=== PATIENT | female | born 1935 | race Caucasian/White ===

== ENCOUNTER 2016-09-08 21:33 | Inpatient (IN) ==
[2016-09-08] MEDS ORDERED: TYLENOL PO PRN (23:30)
[2016-09-08] MEDS ORDERED: HYDROXYZINE PO PRN (23:36)
[2016-09-08] MEDS ORDERED: NARCAN IV PRN (23:36)
[2016-09-08] MEDS ORDERED: BENADRYL IV PRN (23:36)
[2016-09-08] MEDS ORDERED: PHENERGAN IV ONE (23:42)
[2016-09-08] MEDS ORDERED: SODIUM CHLORIDE 0.9% INJ ONE (23:42)
[2016-09-08] MEDS ORDERED: DILAUDID IV ONE (23:42)
[2016-09-08] MEDS: OFIRMEV 1000 MG/ISOTONIC SOLN 1,000 MG/100 ML BOTTLE IV SCH (23:45)
[2016-09-09] MEDS: OFIRMEV 1000 MG/ISOTONIC SOLN 1,000 MG/100 ML BOTTLE IV SCH (06:14)
[2016-09-09] MEDS ORDERED: LR 1,000 ML IV SCH ×2 (06:27→07:19)
[2016-09-09] MEDS: DILAUDID PCA VIAL IV PRN (06:42)
[2016-09-09] MEDS: COZAAR PO SCH (10:18)
[2016-09-09] MEDS: DITROPAN XL PO SCH (10:19)
[2016-09-09] MEDS: CYMBALTA PO SCH (10:19)
[2016-09-09] MEDS: EVOXAC PO SCH ×3 (10:20→19:03)
[2016-09-09] MEDS: NORCO-10 PO SCH ×3 (10:20→21:12)
[2016-09-09] MEDS: VITAMIN D PO SCH (10:21)
[2016-09-09] MEDS: PRILOSEC PO SCH (10:21)
[2016-09-09] MEDS: TOPROL XL PO SCH (10:21)
[2016-09-09] MEDS: PREDNISONE PO SCH (10:21)
[2016-09-09] MEDS: TOPAMAX PO SCH (10:21)
--- NOTE | 2016-09-09 10:23 | Diag Imaging Result Document ---
PROCEDURE NAME: RIBS UNILAT W/PA CHEST RIGHT - 09/08/2016 PLAIN RADIOGRAPH OF THE CHEST AND RIGHT RIBS 3 VIEWS: COMPARISON: Chest radiograph dated 04/29/2015. FINDINGS: There are fractures of the 6th, 7th, and 8th ribs on the right. The fractures are at the posterolateral aspect of the ribs and are mildly displaced. There is a 2nd nondisplaced fracture more posteriorly involving the 6th rib. There is an associated small right apical pneumothorax that occupies only about 10% of the right chest cavity. There is mild atelectasis at the lung bases. Cardiac silhouette and central vasculature are grossly unremarkable. IMPRESSION: Fractures of the 6th, 7th, and 8th ribs on the right as described with an associated small right apical pneumothorax.
--- NOTE | 2016-09-09 10:36 | Diag Imaging Result Document ---
PROCEDURE NAME: CHEST-2 VIEWS - 09/09/2016 PA AND LATERAL RADIOGRAPH OF THE CHEST: COMPARISON: 09/08/2016. FINDINGS: Displaced rib fractures on the right are again noted. There is a stable small right apical pneumothorax that occupies approximately 10% of the right chest cavity. There is a small amount of subcutaneous emphysema overlying the right chest wall inferiorly. There is mild subsegmental atelectasis at the lung bases. Cardiac silhouette and central vasculature are grossly unremarkable. IMPRESSION: Stable acute rib fractures on the right with a stable small right apical pneumothorax.
--- NOTE | 2016-09-09 13:50 | HISTORY AND PHYSICAL ---
CHIEF COMPLAINT: Fall with pain in the sides. HISTORY OF PRESENT ILLNESS: This 80-year-old white female with a fairly long history of falls and osteoporotic fractures was about to go up the stairs at her house when she lost her footing on the bottom stair, fell back and hit a large urn right on the handle. It struck her more in the back and flank, but she started having side pain. She was brought to the emergency room and x-rays revealed multiple rib fractures on the right side. The patient is admitted for pain control. She denied any shortness of breath. She did not have true syncope, but merely lost her footing. She has an extensive medical history. PAST MEDICAL HISTORY: 1. Hypertension. 2. Hypothyroidism. 3. Degenerative arthritis. 4. Osteoporosis. 5. Carpal tunnel syndrome. 6. Paroxysmal atrial fibrillation on chronic anticoagulation (Pradaxa). 7. Sjogren syndrome. PAST SURGICAL HISTORY: 1. Appendectomy. 2. Colon resection. 3. Septoplasty. 4. Hysterectomy with bladder repair. 5. Cataract. 6. Mastectomy with surgical reconstruction and augmentation. 7. Right hip fracture with repair. SOCIAL HISTORY: The patient is and lives with her . She does not smoke. Does not consume alcohol. In the past, the patient and her were dance instructors. FAMILY HISTORY: Noncontributory. REVIEW OF SYSTEMS: The patient had no neurological signs or symptoms before, during or after her fall. She denied any cough, wheezing, or shortness of breath. She simply had right flank pain. She has not been coughing. She had no extraneous bleeding problems. The patient denies any abdominal symptoms. She has no genitourinary complaints. She has not been swelling. Her other orthopedic and rheumatologic issues have been quiescent of late. She is followed by a collar fuser. PHYSICAL EXAMINATION: GENERAL: She is a well-developed, thin white female in no acute distress at the time that I saw her. She states that her pain is well controlled on her medications. I had started PUBLIC EVENTS FACILITIES RENTAL MANAGER pump overnight, and she seemed to be tolerating this quite well. She requests discharge. NECK: Exam unremarkable. LUNGS: Clear to auscultation bilaterally. She is tender on the right side. I did not press that area very hard given the nature of her injuries. ABDOMEN: Bowel sounds are present, nontender and nondistended. EXTREMITIES: No peripheral edema. NEUROLOGIC: Cranial nerves are intact. She is alert and oriented, conversive and appropriate. She is in a very good mood. ASSESSMENT AND PLAN: 1. The patient shows rib fractures in multiple ribs on the initial x-ray performed in the emergency room. I do not have an official report on that yet. She is admitted for pain control. I started PUBLIC EVENTS FACILITIES RENTAL MANAGER pump overnight, which she tolerated well, but she was very desirous to go home, so I told her that we would try and switch her over to oral medications and see how much she actually had to use the PUBLIC EVENTS FACILITIES RENTAL MANAGER pump. I discontinued the basal rate this morning, and we will repeat a chest x-ray. Given the fact she is on blood thinner and had such intense trauma to her right side, I would like to repeat an x-ray. There were no physical findings. Her Pradaxa has been held. 2. The patient's other cardiac and rheumatologic medications have been given as previously prescribed. cc: Edouard Norton MD
[2016-09-09] MEDS: LR 1,000 ML IV SCH (17:09)
[2016-09-10] MEDS: ZOFRAN IV PRN ×2 (01:50→08:08)
[2016-09-10] MEDS ORDERED: CARDIZEM IV ONE (02:33)
[2016-09-10] MEDS ORDERED: CARDIZEM IV PRN (04:00)
[2016-09-10] MEDS: PRILOSEC PO SCH (06:07)
[2016-09-10] MEDS: DILAUDID PCA VIAL IV PRN (07:54)
[2016-09-10] MEDS: LR 1,000 ML IV SCH ×2 (08:07→18:00)
[2016-09-10] MEDS: CYMBALTA PO SCH (08:10)
[2016-09-10] MEDS: PREDNISONE PO SCH (08:11)
[2016-09-10] MEDS: DITROPAN XL PO SCH (08:11)
[2016-09-10] MEDS: VITAMIN D PO SCH (08:11)
[2016-09-10] MEDS: TOPAMAX PO SCH (08:11)
[2016-09-10] MEDS: COZAAR PO SCH (08:11)
--- NOTE | 2016-09-10 08:11 | Diag Imaging Result Document ---
PROCEDURE NAME: CHEST-2 VIEWS - 09/10/2016 FRONTAL AND LATERAL CHEST, TWO VIEWS: COMPARISON: 09/09/2016. FINDINGS: There is persistence of the small right-sided pneumothorax. There are several right rib fractures. Atelectasis versus scarring is found in the lung bases. There are small effusions. The heart is not enlarged. The pulmonary vessels are small. IMPRESSION: No interval improvement.
[2016-09-10] MEDS: EVOXAC PO SCH ×3 (08:12→17:22)
[2016-09-10] MEDS: TOPROL XL PO SCH (08:18)
[2016-09-10] MEDS: NORCO-10 PO SCH ×3 (08:19→17:21)
--- NOTE | 2016-09-10 12:43 | PROGRESS NOTE ---
DATE: 09/10/2016 SUBJECTIVE: The patient states that her ribs really hurt. She took 10 mg [place] 3 times yesterday as prescribed and also used her LAMINATING PRESS OPERATOR at least 3 times according to the readings on the pump. She states that she does not feel like she is ready to go home and that her ribs really hurt when she moves. We discussed the findings of multiple rib fractures plus a small pneumothorax and she has consented to stay another day. She was encouraged to move a little bit more. OBJECTIVE: Vital Signs: Temperature 98.0 64, 17, 157/75. She is 98% saturated on room air. General: The patient is in no acute distress. Although, she complains of the pain in her rib cage, she does not appear to be any pain moves her upper extremities without difficulty. She seems to be having a normal respiratory cycle. Lungs: Clear with good air movement. No wheezing. Cardiovascular: Regular. Extremities: Show no peripheral edema. I inspected the patient's toes and the 3rd digit of left foot has what appears to be a resolving bruise and/or hangnail. It does not appear to be acutely infected; in fact, appears to be a chronic phenomenon. ASSESSMENT AND PLAN: 1. The patient's fall with multiple rib fractures and small pneumothorax are still quite painful. Chest x-ray this morning did not show any progression of her pneumothorax. The radiologist read it has 10% but it appears smaller than that to me based on the overall lung volumes. I do not feel like this represents any grave danger to her and I encouraged her to continue with deep breathing and hopefully this will re-expand. 1. Pain control measures with LAMINATING PRESS OPERATOR and p.o. Pulaski will continue. I have encouraged the patient to move. 2. We will continue to hold Pradaxa. 3. Atrial fibrillation is stable. cc: Edouard Norton MD
[2016-09-10] MEDS: DESYREL PO PRN (22:14)
[2016-09-11] MEDS: PRILOSEC PO SCH (06:32)
[2016-09-11] MEDS: NORCO-10 PO SCH ×5 (08:10→20:15)
[2016-09-11] MEDS: COZAAR PO SCH (08:11)
[2016-09-11] MEDS: VITAMIN D PO SCH (08:11)
[2016-09-11] MEDS: TOPROL XL PO SCH (08:11)
[2016-09-11] MEDS: TOPAMAX PO SCH (08:11)
[2016-09-11] MEDS: DITROPAN XL PO SCH (08:12)
[2016-09-11] MEDS: PREDNISONE PO SCH (08:12)
[2016-09-11] MEDS: CYMBALTA PO SCH (08:12)
[2016-09-11] MEDS: EVOXAC PO SCH ×3 (08:13→17:27)
--- NOTE | 2016-09-11 09:20 | PROGRESS NOTE ---
DATE: 09/11/2016 SUBJECTIVE: The patient is taking her pain medicine as prescribed. She has had to hit the REAL ESTATE AGENCY PRINCIPAL pump 6 times over the past 24 hours. She has not gotten up out of bed. She still states she is in very great pain. Despite this, she requested discharge home. I told her that was quite impossible until she was able to move. VITAL SIGNS: Afebrile. PHYSICAL EXAMINATION: The patient's lungs are clear. She has good air movement. There is no wheezing and no respiratory difficulty. Cardiovascular: Regular. Neurologic: The patient is alert, oriented, conversive, and appropriate. ASSESSMENT AND PLAN: 1. The patient had an x-ray scheduled today but for some reason it has not been taking. I will plan to reorder her scheduled narcotics and, hopefully, she will be able to make it with p.o. medications alone. I have encouraged her to get up and sit on the edge of the bed and try to walk to the bathroom. She declined an offer of physical therapy consultation. 2. Still holding the patient's Pradaxa. 3. Other medications remain intact. 4. The patient requests something for helping her sleep. I have written for Ativan 1 mg p.o. at bedtime. cc: Edouard Norton MD
--- NOTE | 2016-09-11 12:23 | Diag Imaging Result Document ---
PROCEDURE NAME: CHEST-2 VIEWS - 09/11/2016 FRONTAL AND LATERAL CHEST, 2 VIEWS. COMPARISON: Compared to 09/10/2016. FINDINGS: There is a small right-sided hydropneumothorax which remains. No definite change compared to the prior study. There are several right lateral rib fractures and there is atelectasis in the right base. There is also atelectasis versus an infiltrate in the left base. The overall appearance is unchanged from a prior study. IMPRESSION: Stable small right-sided hydropneumothorax.
[2016-09-11] MEDS ORDERED: BLISTEX MEDICATED BERRY LIP BALM TOP ONE (14:36)
[2016-09-11] MEDS: LR 1,000 ML IV SCH (17:27)
[2016-09-11] MEDS: DILAUDID PCA VIAL IV PRN (19:57)
[2016-09-11] MEDS: ATIVAN PO SCH (20:15)
[2016-09-11] MEDS: DESYREL PO PRN (20:15)
[2016-09-12] MEDS: PRILOSEC PO SCH (06:28)
[2016-09-12] MEDS ORDERED: PRADAXA PO ONE (08:25)
--- NOTE | 2016-09-12 08:36 | PROGRESS NOTE ---
DATE: 09/12/2016 SUBJECTIVE: The patient states that she was able to get up in the chair yesterday. She was also able to use the bedside commode. She walked to the bathroom 1 time and was able to sit up on the side of the bed. She did require a couple of actuations of the BUTADIENE CONVERTER OPERATOR pump but was more comfortable on the 10 mg of Cliff scheduled 4 times daily. She seems to be making progress. This morning, the patient had a little bit of a dry cough and when I listened to her, she seemed to have a little bit less air movement on the right side. Yesterday's chest x-ray had been fine but we are going to recheck that today. OBJECTIVE: Vital Signs: 98.3, 94, 16, 137/80. Physical Examination: Lungs: Slightly decreased breath sounds in the right upper side. A dry cough was noted. The patient did not seem to have extraordinarily increased pain with cough or with deep breathing but she was clearly uncomfortable with certain movements. ASSESSMENT AND PLAN: We will recheck a chest x-ray today and encourage the patient to move about. I have also encouraged her to use as little of the BUTADIENE CONVERTER OPERATOR pump as possible so that we can better gauge how well her pain is controlled with oral pain medications. We have continued to hold the patient's Pradaxa and may start this at discharge. cc: Edouard Norton MD
[2016-09-12] MEDS: PREDNISONE PO SCH (09:58)
[2016-09-12] MEDS: VITAMIN D PO SCH (09:59)
[2016-09-12] MEDS: COZAAR PO SCH (09:59)
[2016-09-12] MEDS: CYMBALTA PO SCH (09:59)
[2016-09-12] MEDS: NORCO-10 PO SCH ×4 (09:59→22:24)
[2016-09-12] MEDS: DITROPAN XL PO SCH (09:59)
[2016-09-12] MEDS: TOPAMAX PO SCH (09:59)
[2016-09-12] MEDS: TOPROL XL PO SCH (09:59)
[2016-09-12] MEDS: EVOXAC PO SCH ×3 (10:00→18:27)
--- NOTE | 2016-09-12 11:32 | Diag Imaging Result Document ---
PROCEDURE NAME: CHEST-2 VIEWS - 09/12/2016 FRONTAL AND LATERAL CHEST, 2 VIEWS: FINDINGS: Compared to 09/11/2016. Marked interval increase in the size of the right-sided hydropneumothorax. There is prominent atelectasis to the right lung. There are multiple right rib fractures. The left lung remains well expanded and clear. The heart remains borderline mildly prominent.. IMPRESSION: Multiple right rib fractures with interval worsening in the right-sided hydropneumothorax. This measures at least 6 cm superiorly on the current exam. A preliminary result was called and given to the patient's nurse on at 10:30 AM.
[2016-09-12 12:09] LABS: URINE SOURCE VOIDED
[2016-09-12 12:12] LABS: BILIRUBIN URINE NEGATIVE (NEGATIVE); BLOOD URINE SMALL (NEGATIVE); COLOR ORANGE; GLUCOSE URINE NEGATIVE (NEGATIVE); LEUKOCYTES URINE LARGE (NEGATIVE); NITRITE URINE NEGATIVE (NEGATIVE); PH URINE 6.5; PROTEIN URINE TRACE mg/dL (NEGATIVE); TURBIDITY URINE TURBID (CLEAR); URINE MICRO REVIEW NEEDED? YES; UROBILINOGEN URINE NORMAL (NORMAL)
[2016-09-12 12:13] LABS: UR EPITHELIAL CELLS <10 /HPF (<10); URINE BACTERIA 4+ /HPF; URINE RBC <10 /HPF (<10); URINE WBC TNTC /HPF (<10)
[2016-09-12 12:20] LABS: URINE CASTS NONE SEEN; URINE CRYSTALS NONE SEEN; URINE SMALL ROUND CELLS NONE SEEN
[2016-09-12] MEDS ORDERED: XYLOCAINE 1%/EPI 1:100,000 INJ ONE (12:56)
--- NOTE | 2016-09-12 15:51 | Diag Imaging Result Document ---
PROCEDURE NAME: CHEST-PORTABLE - 09/12/2016 PORTABLE CHEST: FINDINGS: Compared to study performed earlier. Interval placement of a right-sided chest tube with partial reexpansion of the right lung. Marked decrease in the size of the right-sided hydropneumothorax. IMPRESSION: Interval improvement following placement of the right chest tube.
[2016-09-12] MEDS: LR 1,000 ML IV SCH (18:51)
--- NOTE | 2016-09-12 20:12 | OPERATIVE NOTE ---
PROCEDURE DATE: 09/12/2016 PROCEDURE PERFORMED: Right chest tube placement. SURGEON: Andrea Lynn MD. PREOPERATIVE DIAGNOSIS: Hemopneumothorax right chest post trauma. POSTOPERATIVE DIAGNOSIS: Hemopneumothorax right chest post trauma. INDICATIONS: This is an 80-year-old who was fallen 3 days ago and has increasing pneumothorax on the right. DESCRIPTION OF PROCEDURE: After informed consent was obtained, the right anterolateral chest just below the breast was prepped and draped in a sterile fashion using ChloraPrep. We anesthetized the skin with 1% lidocaine in the skin, subcutaneous tissue, and pleura. We incised the skin and dissected through the subcutaneous tissue into the pleural space. We introduced a 24 trocar chest tube into this pleural space and advanced it into the pleural space. We attached it to the Pleur- evac. We secured at the skin level with silk stitches. A sterile Xeroform was placed, sterile gauze dressing was applied. The Pleur-evac was attached to wall suction. She tolerated it well. Chest x-ray was ordered. cc: MD Edouard Bermeo MD
[2016-09-12] MEDS: MACRODANTIN PO SCH (22:24)
[2016-09-12] MEDS: DESYREL PO PRN (22:25)
[2016-09-12] MEDS: ATIVAN PO SCH (22:25)
[2016-09-13] MEDS: PRILOSEC PO SCH (06:36)
[2016-09-13] MEDS: DILAUDID PCA VIAL IV PRN (07:45)
--- NOTE | 2016-09-13 08:40 | Diag Imaging Result Document ---
PROCEDURE NAME: CHEST-PORTABLE - 09/13/2016 AP PORTABLE CHEST, 09/13/2016 AT 0500 HOURS: FINDINGS: The right chest tube remains. There continues to be some atelectasis in the right upper and middle lobes and the lingula. Considering differences in technique and inspiration this does not appear to have changed significantly since 09/12/2016. Multiple right rib fractures are again noted. IMPRESSION: Subsegmental atelectasis.
[2016-09-13] MEDS: NORCO-10 PO SCH ×4 (08:41→22:34)
[2016-09-13] MEDS: COZAAR PO SCH (08:42)
[2016-09-13] MEDS: VITAMIN D PO SCH (08:42)
[2016-09-13] MEDS: MACRODANTIN PO SCH ×2 (08:42→22:33)
[2016-09-13] MEDS: PREDNISONE PO SCH (08:42)
[2016-09-13] MEDS: TOPROL XL PO SCH (08:42)
[2016-09-13] MEDS: CYMBALTA PO SCH (08:42)
[2016-09-13] MEDS: TOPAMAX PO SCH (08:43)
[2016-09-13] MEDS: DITROPAN XL PO SCH (08:44)
[2016-09-13] MEDS: EVOXAC PO SCH ×3 (08:45→17:47)
--- NOTE | 2016-09-13 14:01 | PROGRESS NOTE ---
DATE: 09/13/2016 SUBJECTIVE: The patient has no complaints. The patient's family complains that the Ativan which was requested by them for sleep is now making her confused at night and they want it discontinued. She has no shortness of breath. Her pain is reasonably well controlled but according to the nursing staff, she had approximately 6 activations of her COMPUGRAPH OPERATOR pump yesterday. OBJECTIVE: Vital Signs: 98.3, 83, 17, 150/78, 98% saturated on nasal cannula. General: The patient is alert, oriented, conversive, and appropriate. Lungs: Clear. She has breath sounds at the apex of the right lung. She is slightly tender on the right side but she is very stoic about it. Extremities: Her left middle toe still has the eschar and bruising. Does not have lower extremity edema. Heart: Rate is regular. ASSESSMENT AND PLAN: 1. The patient's traumatic rib fracture with hemopneumothorax has resolved with placing a chest tube. Although the radiologist did not feel there was much change, I feel like the lung is more inflated than it was yesterday compared to the post chest tube film. We will continue the chest tube according to our surgeon's recommendations and when that is discontinued and she is stable, we will be able to discharge home. 2. The patient's atrial fibrillation is quiescent. She appears to be in a regular rhythm. I have held her Pradaxa since she had a chest tube put in. We will continue to hold this for the time being. 3. I requested consultation with Dr. Jonathan Graff to look at her toe and see if there is anything he needs to do while she is in the hospital and off of her Pradaxa. 4. We will continue efforts at getting her on an oral pain medication regimen which she can tolerate at home. cc: Edouard Norton MD
[2016-09-13] MEDS: LR 1,000 ML IV SCH (17:52)
[2016-09-13] MEDS: RESTORIL PO SCH (22:33)
[2016-09-14] MEDS: PRILOSEC PO SCH (06:20)
[2016-09-14] MEDS: DILAUDID PCA VIAL IV PRN (07:58)
--- NOTE | 2016-09-14 10:35 | Diag Imaging Result Document ---
PROCEDURE NAME: CHEST-PORTABLE - 09/14/2016 SINGLE FRONTAL RADIOGRAPH OF THE CHEST: COMPARISON: 09/13/2016. FINDINGS: There has been interval removal of the right chest tube. There is only a small residual pneumothorax at the right lung apex. There is slight increased opacity at the right lung base likely representing atelectasis. Otherwise, no new consolidation identified. Cardiac silhouette is stable. Multiple displaced rib fractures on the right are again noted. IMPRESSION: 1. Interval removal of the right chest tube with only a tiny residual pneumothorax at the right lung apex. 2. Mild increase in opacity at the right lung base likely representing atelectasis.
[2016-09-14] MEDS: VITAMIN D PO SCH (10:40)
[2016-09-14] MEDS: TOPAMAX PO SCH (10:41)
[2016-09-14] MEDS: CYMBALTA PO SCH (10:41)
[2016-09-14] MEDS: TOPROL XL PO SCH (10:41)
[2016-09-14] MEDS: NORCO-10 PO SCH ×4 (10:41→20:42)
[2016-09-14] MEDS: DITROPAN XL PO SCH (10:41)
[2016-09-14] MEDS: MACRODANTIN PO SCH ×2 (10:42→20:43)
[2016-09-14] MEDS: PREDNISONE PO SCH (10:42)
[2016-09-14] MEDS: COZAAR PO SCH (10:42)
[2016-09-14] MEDS: EVOXAC PO SCH ×3 (10:42→17:44)
--- NOTE | 2016-09-14 14:21 | CONSULTATION ---
DATE OF CONSULTATION: 09/14/2016 CHIEF COMPLAINT: Left 2nd toe pain. HISTORY OF PRESENT ILLNESS: Ms. Robles is an 80-year-old female who presented to the emergency department after falling. She was diagnosed with multiple rib fractures. It was also then noticed that this left 2nd toe was a little bit discolored and so Orthopedics was consulted. PAST MEDICAL HISTORY: Hypertension, hypothyroidism, arthritis, osteoporosis, atrial fibrillation, Sjogren syndrome. PAST SURGICAL HISTORY: Appendectomy, colon resection, septoplasty, hysterectomy, cataract, mastectomy, and right hip repair. SOCIAL HISTORY: She lives at home with her . She denies any smoking or alcohol use. FAMILY HISTORY: Noncontributory. MEDICINES: Per medical record. ALLERGIES: No known drug allergies. REVIEW OF SYSTEMS: Positive for rib pain and also has left 2nd toe pain. PHYSICAL EXAMINATION: General: Well-developed, well-nourished female in no acute distress. Head and Neck: Normocephalic, atraumatic. Respirations: Nonlabored. Cardiovascular: Regular rate. Abdomen: Nondistended. Extremities: On left lower extremity examination, the left 2nd toe is discolored on the end. At this point, there is no full-thickness tissue loss. There is no exposed bone, but the end of the toe does look very dusky and it is just at the tip. The rest of the toe looks fine. The other toes look fine. There is no surrounding erythema. There is no drainage there either. ASSESSMENT: Left 2nd toe ischemia. PLAN: I discussed with Ms. Robles and her about this toe. It looks like she, unfortunately, has gotten some ischemia to the toe. There is no full-thickness tissue loss at this point, so I would just watch this. I believe she does have an appointment to see me this next week and so we will continue to watch this. It does not look like it is infected at this point either. I did discuss with them that if the ischemia progresses, then the toe would be at risk for losing it. We will watch it for now. Unless it gets very infected, then we can give it a little bit of time. So, I will see her in my clinic this next week. cc: MD Edouard Thornton MD
[2016-09-14] MEDS: LR 1,000 ML IV SCH (17:30)
[2016-09-14] MEDS: RESTORIL PO SCH (20:43)
[2016-09-14] MEDS: DESYREL PO PRN (22:16)
[2016-09-15] MEDS: PRILOSEC PO SCH (06:09)
[2016-09-15] MEDS ORDERED: RELISTOR SUBQ ONE (08:38)
[2016-09-15] MEDS: NORCO-10 PO SCH ×4 (09:16→20:30)
[2016-09-15] MEDS: EVOXAC PO SCH ×3 (09:16→17:47)
[2016-09-15] MEDS: PREDNISONE PO SCH (09:17)
[2016-09-15] MEDS: COZAAR PO SCH (09:17)
[2016-09-15] MEDS: MACRODANTIN PO SCH ×2 (09:17→20:29)
[2016-09-15] MEDS: TOPAMAX PO SCH (09:17)
[2016-09-15] MEDS: VITAMIN D PO SCH (09:17)
[2016-09-15] MEDS: TOPROL XL PO SCH (09:17)
[2016-09-15] MEDS: CYMBALTA PO SCH (09:17)
[2016-09-15] MEDS: DITROPAN XL PO SCH (09:17)
[2016-09-15] MEDS: RESTORIL PO SCH (20:29)
[2016-09-15] MEDS: DESYREL PO PRN (20:29)
--- NOTE | 2016-09-15 23:24 | PROGRESS NOTE ---
DATE: 09/15/2016 SUBJECTIVE: I had a long discussion with the patient, her , and her daughter. The patient really desires to go home, but I think given her limitation of mobility due to the pain in her ribs, and complications of her rib fractures, she will need some type of rehabilitation stay. The patient reluctantly agreed, and the daughter was in favor of it as well. Dr. Graff did a consult yesterday and noted that the tip of her middle toe on the left foot was probably ischemic, but did not appear to be infected, no other part of the toe otherwise appeared to be infected. He wanted to just observe this. OBJECTIVE: Vital Signs: Temperature 97.3, heart rate 78, blood pressure 135/79. General: She is a well-developed, thin, white female, in no acute distress. Lungs: Clear to auscultation. She does have a slight limited excursion on the right side, but her breath sounds are good all the way up to the apex. She is able to move air, and has been instructed in the use of the inspiratory spirometer. Cardiovascular: Regular. Neurologic: Intact. ASSESSMENT AND PLAN: 1. We will try and seek a bed at [facility] in [place], according to the patient's and the family's wishes. I have instructed her in the use of the inspiratory spirometer and encouraged her to sit up and move about as much as practicable with the help of physical therapy and nursing. I simply do not feel that the patient and her alone can make it at home without some type of rehab and the patient regaining her feet, with better stability. 2. The patient's pain control appears to be adequate, with 4 times a day [place]. She does not seem to be mentally slowed at all from this. 3. The patient's atrial fibrillation is stable. She will need to be started back on her Pradaxa prior to discharge. 4. I spoke with the fire warden today to get the pediatric social worker to call me. No call was made to me. Later in the afternoon, my nurse called 3 times to get in touch with the pediatric social worker and was unable. I finally was able to track her down at the nursing desk and we spoke briefly about the [facility] issue. Later in the, afternoon after office hours, I was paged by the pediatric social worker, but she did not answer the phone number that she gave me. We expect discharge soon to [facility] as soon as a bed is available. cc: Edouard Norton MD
[2016-09-16 07:56] VITALS: BP 133/72
[2016-09-16] MEDS ORDERED: RELISTOR SUBQ ONE (08:26)
[2016-09-16] MEDS ORDERED: DULCOLAX PO ONE (08:27)
[2016-09-16] MEDS ORDERED: FLEET ENEMA PR ONE (08:27)
[2016-09-16] MEDS: MACRODANTIN PO SCH (08:57)
[2016-09-16] MEDS: VITAMIN D PO SCH (08:57)
[2016-09-16] MEDS: EVOXAC PO SCH ×2 (08:57→13:18)
[2016-09-16] MEDS: NORCO-10 PO SCH ×2 (08:58→13:18)
[2016-09-16] MEDS: DITROPAN XL PO SCH (08:58)
[2016-09-16] MEDS: CYMBALTA PO SCH (08:58)
[2016-09-16] MEDS: COZAAR PO SCH (08:58)
[2016-09-16] MEDS: PRILOSEC PO SCH (08:59)
[2016-09-16] MEDS: TOPAMAX PO SCH (08:59)
[2016-09-16] MEDS: TOPROL XL PO SCH (08:59)
[2016-09-16] MEDS: PREDNISONE PO SCH (08:59)
[2016-09-16] MEDS ORDERED: MIRALAX PO SCH (09:00)
[2016-09-16] MEDS ORDERED: SODIUM CHLORIDE 0.9% 10 ML ONE (09:45)
[2016-09-16] MEDS: ZOFRAN IV PRN (09:47)
--- NOTE | 2016-09-16 13:07 | DISCHARGE SUMMARY ---
ADMISSION DATE: 09/09/2016 DISCHARGE DATE: 09/16/2016 DISCHARGE DIAGNOSES: 1. Fall with multiple rib fractures on the right side. 2. Traumatic pneumothorax on the right side. 3. Chronic atrial fibrillation with anticoagulation therapy. 4. Osteoporosis. 5. Gait instability. CONSULTATIONS: Dr. Andrea Lynn. OPERATIVE PROCEDURES: Bedside chest tube placement. HOSPITAL COURSE: This 80-year-old white female fell as she was starting up the stairs impacting her right side on the handle of a large urn at the base of the stairs. She suffered 3 rib fractures on the right side one of which was markedly displaced. Her initial x-ray showed a small, likely 5% or less pneumothorax at the apex on the right side. We observed this for several days. But then several days into the hospitalization I noted decreased breath sounds in the upper lobe on the right side. Followup chest x-ray showed a marked increase in the pneumothorax on that side. As a result, Dr. Lynn was consulted and did a chest tube placement which reinflated the lung. The main issues with the patient's hospitalization were gait stability and pain control. We had her on a THEATER COMPANY PRODUCER pump for a few days and then transitioned to 4 times a day Brandywine 10/325 mg. This seemed to be adequate for her. After consulting with the patient's family and with the patient she was convinced that she needed some rehabilitation. I am very worried the given the level of pain she still undergoes and with the previous pneumothorax, I need her gait stability to be rock solid before she goes home. She cannot afford another fall with trauma like this. In the past she has fractured hips as a result of this. I have also made some inroads in the office in regard to trying to get her some Forteo injections for osteoporosis and we will try and consider this when she is discharged from rehab. There are no new medications for the patient except for increasing her Brandywine dose from 7.5 mg to 10 mg 4 times a day. cc: Edouard Norton MD
== END 2016-09-16 14:52 ==
LOC: ED 21:33 → EDIPHOLD 09-09 02:18 → 3N 09-09 14:12
PROVIDERS: ADMIT Internal Medicine; ATTEND Internal Medicine